=== PATIENT | male | born 1985 | race Two or more races ===

== ENCOUNTER 2023-05-13 19:53 | Emergency (ER) | payer OTHER ==
[~2023-05-13] VITALS: Ht 170.2 cm; Wt 64.4 kg
[2023-05-13] MEDS ORDERED: TOPROL XL25 M1 PO (20:07)
[2023-05-13] MEDS ORDERED: COZAAR100 MG PO (20:07)
[2023-05-13] MEDS ORDERED: NORVASC10 MG PO (20:08)
[2023-05-13] MEDS ORDERED: OZEMPIC0.25 MG/0. SQ (20:08)
== END 2023-05-13 23:42 | disposition home or self-care (01) ==
LOC: ER 19:53
DX: E86.0 Dehydration (principal); R42 Dizziness and giddiness; I10 Essential (primary) hypertension